=== PATIENT | female | born 1945 | race Caucasian/White ===

== ENCOUNTER 2020-04-27 18:01 | Emergency (ER) | payer OTHER ==
[~2020-04-27] VITALS: Ht 162.6 cm; Wt 74.8 kg
[2020-04-27] MEDS ORDERED: BISOPROLOL-HCT1 EACH (18:11)
[2020-04-27] MEDS ORDERED: ATORVASTATIN CA10 MG (18:11)
== END 2020-04-27 22:51 | disposition home or self-care (01) ==
LOC: ER 18:01
DX: K52.89 Other specified noninfective gastroenteritis and colitis (principal); Z03.818 Encounter for observation for suspected exposure to other biological agents ruled out